=== PATIENT | female | born 1995 | race African-American/Black ===

== ENCOUNTER 2017-01-02 05:50 | Inpatient (IN) | payer MEDICAID ==
[~2017-01-02] VITALS: Ht 160 cm; Wt 69.1 kg
[~2017-01-02 05:50] MED LIST: LAMO25 PO; LEVE500T53 PO; LITH300C3 PO
[2017-01-02 06:52] LABS: BASOPHILS % (AUTO) 0.8 % (0.0-2.0); EOSINOPHILS % (AUTO) 0.8 % (1.0-6.0); HEMATOCRIT 38.9 % (36-46); HEMOGLOBIN 12.7 g/dL (12.0-16.0); LYMPHOCYTES # (AUTO) 2.4 K/uL (1.0-4.8); MEAN CORPUSCULAR HEMOGLOBIN 29.8 pg (26.0-34.0); MEAN CORPUSCULAR HGB CONC 32.7 G/dL (31.0-37.0); MEAN CORPUSCULAR VOLUME 91 fL (80-100); MONOCYTES # (AUTO) 0.4 K/uL (0.1-1.0); MONOCYTES % (AUTO) 5.3 % (2.0-9.0); NEUTROPHILS % (AUTO) 58.1 % (40.0-70.0); PLATELET COUNT (AUTO) 276 K/uL (150-450); RED BLOOD CELL COUNT(AUTO) 4.26 MIL/uL (4.00-5.20); RED CELL DISTRIBUTION WIDTH 15.1 % (11.5-14.5); WHITE BLOOD COUNT (AUTO) 6.9 K/uL (4.5-11.0)
[2017-01-02 06:59] LABS: ANION GAP 12 mmol/L (8-16); CALCIUM, TOTAL 8.3 mg/dL (8.8-10.5); CARBON DIOXIDE 24 mmol/L (22-29); CHLORIDE 109 mmol/L (98-107); CREATININE 0.51 mg/dL (0.60-1.30); GLOMERULAR FILTR. RATE CALC > 60 mL/min (>60); POTASSIUM 3.2 mmol/L (3.5-5.1); SODIUM SERUM 145 mmol/L (136-145); UREA NITROGEN, BLOOD 5 mg/dL (7-18)
[2017-01-02 07:05] LABS: ALANINE AMINOTRANSFERASE 11 U/L (12-78); ALBUMIN 3.5 g/dL (3.4-5.0); ASPARTATE AMINOTRANSFERASE 15 U/L (15-37); BILIRUBIN,TOTAL 0.4 mg/dL (0.1-1.0); TOTAL PROTEIN, SERUM 6.9 g/dL (6.4-8.2)
[2017-01-02 07:08] LABS: LITHIUM < 0.20 mmol/L (0.60-1.20)
[2017-01-02 07:09] LABS: ACETAMINOPHEN < 2 mcg/mL (10-30)
[2017-01-02 07:15] LABS: SALICYLATE < 2.8 mg/dL (2.8-20.0)
[2017-01-02] MEDS ORDERED: POTASSIUM CHLORIDE 20 MEQ ER TABLET PO ONE (07:15)
[2017-01-02] MEDS ORDERED: ZOLPIDEM TARTRATE 10 MG TABLET PO PRN (08:00)
[2017-01-02] MEDS ORDERED: HALOPERIDOL 5 MG TABLET PO PRN (08:00)
[2017-01-02] MEDS ORDERED: MAG HYDROX/AL HYDROX/SIMETH ES 30 ML SUSPENSION UDCUP PO PRN (08:00)
[2017-01-02] MEDS ORDERED: MAGNESIUM HYDROXIDE SUSPENSION 30 ML UDCUP PO PRN (08:00)
[2017-01-02] MEDS: LORazepam 2 MG TABLET PO PRN ×2 (11:10→22:56)
[2017-01-02 12:48] VITALS: BP 132/77
[2017-01-02] MEDS ORDERED: ALBUTEROL SULFATE HFA 90 MCG/PUFF 8 GM INHALER IH PRN (13:45)
[2017-01-02 16:56] VITALS: BP 131/75
[2017-01-03] MEDS ORDERED: FLUoxetine HCL 20 MG CAPSULE PO SCH (09:00)
[2017-01-03 09:04] VITALS: BP 128/79
[2017-01-03] MEDS: LORazepam 2 MG TABLET PO PRN (12:21)
[2017-01-03 16:36] VITALS: BP 112/58
[2017-01-03] MEDS: OLANZapine 5 MG TABLET PO SCH ×2 (20:50→21:07)
[2017-01-03] MEDS ORDERED: ALBUTEROL SULFATE HFA 90 MCG/PUFF 8 GM INHALER IH PRN (22:45)
[2017-01-03] MEDS ORDERED: ACETAMINOPHEN 325 MG TABLET PO PRN (22:45)
[2017-01-03] MEDS ORDERED: IBUPROFEN 400 MG TABLET PO PRN (22:45)
[2017-01-03] MEDS: POTASSIUM CHLORIDE 10% 40 MEQ/30 ML LIQUID UDCUP PO ONE ×2 (23:02→23:11)
[2017-01-04 09:06] VITALS: BP 106/62
[2017-01-04] MEDS: LevETIRAcetam 500 MG TABLET PO SCH ×2 (09:56→16:15)
[2017-01-04] MEDS: FLUoxetine HCL 20 MG CAPSULE PO SCH (09:56)
[2017-01-04 18:00] VITALS: BP 117/73
[2017-01-04 19:48] LABS: ALANINE AMINOTRANSFERASE 11 U/L (12-78); ALBUMIN 3.8 g/dL (3.4-5.0); ANION GAP 12 mmol/L (8-16); ASPARTATE AMINOTRANSFERASE 13 U/L (15-37); BILIRUBIN,TOTAL 0.6 mg/dL (0.1-1.0); CARBON DIOXIDE 23 mmol/L (22-29); CHLORIDE 103 mmol/L (98-107); CREATININE 0.83 mg/dL (0.60-1.30); GLOMERULAR FILTR. RATE CALC > 60 mL/min (>60); POTASSIUM 4.2 mmol/L (3.5-5.1); SODIUM SERUM 138 mmol/L (136-145); TOTAL PROTEIN, SERUM 7.9 g/dL (6.4-8.2); UREA NITROGEN, BLOOD 16 mg/dL (7-18)
[2017-01-04] MEDS ORDERED: OLANZapine 2.5 MG TABLET PO SCH (21:00)
[2017-01-04] MEDS ORDERED: LEVE500T53 PO (22:47)
[2017-01-04] MEDS ORDERED: OLAN2.5T3 PO (22:48)
[2017-01-04] MEDS ORDERED: FLUO-191 PO (22:48)
[2017-01-05 06:24] VITALS: BP 105/60
[2017-01-05 08:45] VITALS: BP 121/67
[2017-01-05] MEDS: FLUoxetine HCL 20 MG CAPSULE PO SCH (09:03)
[2017-01-05] MEDS: LevETIRAcetam 500 MG TABLET PO SCH (09:03)
== END 2017-01-05 12:15 | disposition home or self-care (01) | DRG 751 ==
LOC: EMS 05:51 → 3EI 12:28
PROVIDERS: ADMIT Psychiatry & Neurology Psychiatry; ATTEND Psychiatry & Neurology Psychiatry
DX: F33.2 Major depressive disorder, recurrent severe without psychotic features (principal); K90.0 Celiac disease; R45.851 Suicidal ideations; G40.909 Epilepsy, unspecified, not intractable, without status epilepticus; E87.6 Hypokalemia; J45.909 Unspecified asthma, uncomplicated; F60.3 Borderline personality disorder; Z62.819 Personal history of unspecified abuse in childhood; F41.9 Anxiety disorder, unspecified; Z79.899 Other long term (current) drug therapy; Z91.011 Allergy to milk products; Z91.5 Personal history of self-harm
CPT/HCPCS: 99285; G0480; G0481; G0482